=== PATIENT | female | born 1995 | race Caucasian/White ===

== ENCOUNTER 2018-11-20 20:34 | Emergency (ER) | payer MEDICAID ==
[~2018-11-20] VITALS: Ht 154.9 cm; Wt 64.0 kg
[2018-11-20 22:55] VITALS: BP 122/51
== END 2018-11-20 22:25 | disposition home or self-care (01) ==
LOC: ER 20:34
DX: N30.00 Acute cystitis without hematuria (principal); N10 Acute pyelonephritis; Z88.0 Allergy status to penicillin
CPT/HCPCS: 99283

== ENCOUNTER 2019-02-27 15:46 | Emergency (ER) | payer MEDICAID ==
[~2019-02-27] VITALS: Ht 154.9 cm; Wt 65.7 kg
[2019-02-27 18:00] VITALS: BP 113/55
[2019-02-27] MEDS ORDERED: FAMOTIDINE 20MG TABLET PO ONE (18:30)
== END 2019-02-27 18:04 | disposition home or self-care (01) ==
LOC: ER 15:46
DX: K21.9 Gastro-esophageal reflux disease without esophagitis (principal); R07.89 Other chest pain
CPT/HCPCS: 93005; 99283

== ENCOUNTER 2019-04-10 11:11 | Emergency (ER) | payer MEDICAID ==
[~2019-04-10] VITALS: Ht 154.9 cm; Wt 64.0 kg
[2019-04-10 13:32] LABS: CLARITY URINE CLOUDY (CLEAR); COLOR URINE ORANGE (YELLOW); KETONES URINE NEGATIVE (NEGATIVE); LEUKOCYTE ESTERASE URINE 3+ (NEGATIVE); NITRITE URINE POSITIVE (NEGATIVE); OCCULT BLOOD URINE 1+ (NEGATIVE); PH URINE 5.5 (4.5-8.0); PROTEIN URINE TRACE (NEGATIVE)
[2019-04-10 14:46] VITALS: BP 118/67
== END 2019-04-10 14:47 | disposition home or self-care (01) ==
LOC: ER 11:11
DX: N39.0 Urinary tract infection, site not specified (principal); Z90.49 Acquired absence of other specified parts of digestive tract; Z88.1 Allergy status to other antibiotic agents
CPT/HCPCS: 81003; 81025; 87077; 87186; 99283

== ENCOUNTER 2019-08-02 15:22 | Emergency (ER) | payer MEDICAID ==
[~2019-08-02] VITALS: Ht 154.9 cm; Wt 68.0 kg
[2019-08-02 16:19] VITALS: BP 100/69
[2019-08-02 18:21] LABS: CLARITY URINE CLEAR (CLEAR); COLOR URINE DARK YELLOW (YELLOW); KETONES URINE NEGATIVE (NEGATIVE); LEUKOCYTE ESTERASE URINE NEGATIVE (NEGATIVE); NITRITE URINE POSITIVE (NEGATIVE); OCCULT BLOOD URINE NEGATIVE (NEGATIVE); PROTEIN URINE NEGATIVE (NEGATIVE); SPECIFIC GRAVITY URINE 1.012 (1.005-1.030)
== END 2019-08-02 19:14 | disposition home or self-care (01) ==
LOC: ER 15:22
DX: N39.0 Urinary tract infection, site not specified (principal)
CPT/HCPCS: 81003; 81025; 99283

== ENCOUNTER 2019-12-25 14:10 | Emergency (ER) | payer MEDICAID ==
[~2019-12-25] VITALS: Ht 154.9 cm; Wt 68.9 kg
[~2019-12-25 14:10] MED LIST: LEVO750T21 MT; METR500T MT
[2019-12-25 15:09] LABS: CLARITY URINE CLEAR (CLEAR); COLOR URINE DARK YELLOW (YELLOW); KETONES URINE NEGATIVE (NEGATIVE); LEUKOCYTE ESTERASE URINE 1+ (NEGATIVE); NITRITE URINE POSITIVE (NEGATIVE); OCCULT BLOOD URINE NEGATIVE (NEGATIVE); PH URINE 5.5 (4.5-8.0); PROTEIN URINE NEGATIVE (NEGATIVE)
[2019-12-25 15:27] LABS: UCG SCREEN NEGATIVE
[2019-12-25 17:03] VITALS: BP 123/59
== END 2019-12-25 17:05 | disposition home or self-care (01) ==
LOC: ER 14:10
DX: N39.0 Urinary tract infection, site not specified (principal); Z88.1 Allergy status to other antibiotic agents; Z79.899 Other long term (current) drug therapy; Z90.49 Acquired absence of other specified parts of digestive tract
CPT/HCPCS: 81003; 81025; 99283

== ENCOUNTER 2023-07-06 07:45 | Emergency (ER) | payer MEDICAID ==
[~2023-07-06] VITALS: Ht 154.9 cm; Wt 72.6 kg
[2023-07-06 07:49] VITALS: BP 115/56; PULSE 82; RESP 16; TEMP 97.5; O2SAT 98
[2023-07-06] MEDS ORDERED: NAPROXEN 250MG TABLET PO ONE (08:15)
[2023-07-06] MEDS ORDERED: NAPR-677 MT (10:25)
== END 2023-07-06 11:03 | disposition home or self-care (01) ==
LOC: ER 07:45
DX: J02.8 Acute pharyngitis due to other specified organisms (principal); Z90.49 Acquired absence of other specified parts of digestive tract; Z88.8 Allergy status to other drugs, medicaments and biological substances
CPT/HCPCS: 71045; 81025; 87070; 87077; 87430; 87804; 99284

== ENCOUNTER 2024-04-07 10:47 | Emergency (ER) | payer BC, MEDICAID, OTHER ==
[~2024-04-07] VITALS: Ht 154.9 cm; Wt 70.0 kg
[~2024-04-07 10:47] MED LIST changes: +NAPR-677 MT
[2024-04-07 11:02] VITALS: TEMP 98.9; O2SAT 98
[2024-04-07] MEDS ORDERED: CYCL5TAB MT (11:35)
[2024-04-07 11:41] VITALS: BP 118/68; PULSE 80; RESP 16; O2SAT 99
== END 2024-04-07 11:42 | disposition home or self-care (01) ==
LOC: ER 10:47
DX: M54.2 Cervicalgia (principal); M25.511 Pain in right shoulder; Z88.0 Allergy status to penicillin; Z90.49 Acquired absence of other specified parts of digestive tract; Z79.899 Other long term (current) drug therapy
CPT/HCPCS: 99283

== ENCOUNTER 2024-08-12 10:49 | Emergency (ER) | payer OTHER ==
[~2024-08-12] VITALS: Ht 154.9 cm; Wt 73.0 kg
[~2024-08-12 10:49] MED LIST changes: +CYCL5TAB3 MT
[2024-08-12 10:58] VITALS: O2SAT 99
[2024-08-12] MEDS ORDERED: AZIT500T8 MT (12:01)
[2024-08-12 12:30] VITALS: BP 129/66; PULSE 105; RESP 19; TEMP 36.7; O2SAT 100
== END 2024-08-12 12:32 | disposition home or self-care (01) ==
LOC: ER 10:49
DX: J03.90 Acute tonsillitis, unspecified (principal); Z79.1 Long term (current) use of non-steroidal anti-inflammatories (NSAID); Z88.0 Allergy status to penicillin; Z90.49 Acquired absence of other specified parts of digestive tract; Z79.899 Other long term (current) drug therapy
CPT/HCPCS: 99283